=== PATIENT | male | born 2005 | race Caucasian/White ===

== ENCOUNTER 2025-07-27 18:34 | Emergency (ER) | payer OTHER ==
[~2025-07-27] VITALS: Ht 180.3 cm; Wt 65.3 kg
[2025-07-27 19:19] LABS: BILIRUBIN Negative (Negative); BLOOD Negative (Negative); CLARITY Clear (Clear); COLOR Yellow (Yellow); KETONE Negative (Negative); LEUKO ESTERASE Negative (Negative); NITRITE Negative (Negative); PH 5.5 (4.5-8.0); SPECIFIC GRAVITY <= 1.005 (1.001-1.030); UROBILINOGEN 0.2 E.U./dl (0.0-1.0)
[2025-07-27 19:21] LABS: BASO # 0.0 10*3/uL (0.0-0.1); BASO % 0.6 % (0.0-1.0); EOS # 0.1 10*3/uL (0.0-0.4); EOS % 0.9 % (1.0-4.0); MEAN CELL VOLUME 87.3 fl (80.0-94.0); MEAN CORPUSCULAR HGB 30.5 pg (27.0-31.0); MEAN PLATELET VOLUME 10.5 fl (9.6-12.3); MONO # 0.3 10*3/uL (0.1-1.0); MONO % 5.5 % (3.0-9.0); NEUT # 3.3 10*3/uL (2.3-7.9); NEUT % 61.4 % (47.0-73.0); NUCLEATED RED BLOOD CELL 0.0 % (0.0-0.0); NUCLEATED RED BLOOD CELL 0.0 10*3/uL (0.0-0.0); PLATELET COUNT AUTOMATED 233 10*3/uL (130-400); RED CELL DISTRI WIDTH 11.3 % (0-14.5)
[2025-07-27 19:26] LABS: WBC 0-2 wbc/hpf (0-5)
[2025-07-27 19:34] LABS: BUN 15 mg/dl (9-23)
[2025-07-27] MEDS ORDERED: AZITHROMYCIN 250 MG TAB PO ONE (19:45)
== END 2025-07-27 19:47 ==
LOC: ED 18:34
DX: N45.1 Epididymitis (principal)